=== PATIENT | male | born 2000 | race Caucasian/White ===

== ENCOUNTER 2019-06-24 12:10 | Emergency (ER) | payer BC ==
[~2019-06-24] VITALS: Ht 177.8 cm; Wt 90.4 kg
[2019-06-24 12:18] VITALS: BP 114/69; Ht 177.8 cm; Wt 90.4 kg
== END 2019-06-24 14:21 | disposition home or self-care (01) ==
LOC: ED 12:10
DX: S93.402A Sprain of unspecified ligament of left ankle, initial encounter (principal); S93.401A Sprain of unspecified ligament of right ankle, initial encounter; W18.40XA Slipping, tripping and stumbling without falling, unspecified, initial encounter; Y93.89 Activity, other specified; Y92.89 Other specified places as the place of occurrence of the external cause; Y99.8 Other external cause status